=== PATIENT | male | born 1945 | race Caucasian/White ===

== ENCOUNTER → 2018-11-01 | Day surgery (SDC) | payer OTHER ==
[~2018-11-01] MED LIST: GADOBUTROL 10 MMOL/10 ML VIAL IV ONE; KETAMINE HCL IN STERILE WATER 50 MG/5 ML SYRINGE ONE; MIDAZOLAM HCL/PF 2 MG/2 ML VIAL. ONE; PROPOFOL 100 ML IV ONE; PROPOFOL 20 ML IV ONE
[2018-11-01 11:53] LABS: CREATININE 1.1 mg/dL (0.7-1.3)
--- NOTE | 2018-11-01 13:23 | RAD ---
MRI Brain with and without contrast History: Recent falls, dizziness for 2 years, unsteady gait Technique: Multiplanar, multi sequential pre and postcontrast MR imaging was performed of the brain. Comparison: None Findings: There is some motion degradation. There is no evidence of recent infarct or cytotoxic edema. Ventricular size is within normal limits. There is mild generalized supratentorial involutional change.There is no significant midline shift, intraaxial mass effect, or focal abnormal extra-axial fluid collection. There is minimal T2 and FLAIR hyperintense abnormality of the supratentorial white matter bilaterally, also minimally of the adithya. There is no nodular parenchymal or leptomeningeal enhancement. There is preservation of the major intracranial flow-voids at the skull base. The cerebellar tonsils are normal in location. There is no significant abnormality of the pineal gland or pituitary gland. There is patchy [id number] ethmoid air cell and minimal frontal and right maxillary sinus mucosal thickening, also right maxillary sinus mucous retention cysts with the largest about 1 cm. There is very minimal fluid and thickening of the mastoid air cells greater on the right.There is preserved marrow signal of the clivus. Impression: 1. There is no evidence of recent infarct or abnormal intracranial enhancement. There is mild generalized supratentorial involutional change. Minimal T2 and FLAIR hyperintense signal abnormality is probably due to chronic microvascular ischemic disease. Electronically signed by: Juan Antonio Daley MD (11/01/2018 1:19 PM) [id number]
[2018-11-01 14:20] VITALS: BP 132/68
== END | disposition home or self-care (01) ==
LOC: MRI 10:56
PROVIDERS: ATTEND Physician Assistant Medical
DX: R42 Dizziness and giddiness (principal); R26.9 Unspecified abnormalities of gait and mobility
CPT/HCPCS: 36415; 70553; 82565; A9585; J2250; J2704